=== PATIENT | male | born 2000 | race Caucasian/White ===

== ENCOUNTER 2020-12-22 16:17 | Inpatient (IN) ==
[2020-12-22] MEDS ORDERED: SODIUM CHLORIDE 0.9% 1000ML 1,000 ML IV SCH (17:30)
--- NOTE | 2020-12-22 17:35 | XRay Report ---
XR chest 1V portable CLINICAL HISTORY: weakness COMPARISON STUDY: No previous studies for comparison. FINDINGS: Lung volumes are normal. Lungs are clear. There is no pneumothorax or pleural effusion. Car diac size is normal. Mediastinal contours are normal. There is no evidence for pulmonary edema. IMPRESSION: No acute cardiopulmonary findings. ACT 112: Negative or not required by law. Electronically signed by: Rehan Bruce M.D. 12/22/2020 5:33 PM
[2020-12-22 17:37] LABS: Basophils # (auto) 0.01 K/uL (0-0.2); Basophils % (auto) 0.1 %; Eosinophils # (auto) 0.01 K/uL (0-0.5); Eosinophils % (auto) 0.1 %; Hematocrit (blood only) 42.8 % (42-52); Hemoglobin 15.3 g/dL (14.0-18.0); Immature Granulocytes # (auto) 0.04 K/uL (0.00-0.02); Immature Granulocytes % (auto) 0.3 %; Lymphocytes # (auto) 0.68 K/uL (1.2-3.4); Lymphocytes % (auto) 4.5 %; Mean Corpuscular Hemoglobin 30.1 pg (25-34); Mean Corpuscular Hgb Conc 35.7 g/dL (32-36); Mean Corpuscular Volume 84.1 fL (80-100); Mean Platelet Volume 9.6 fL (7.4-10.4); Monocytes # (auto) 0.47 K/uL (0.11-0.59); Monocytes % (auto) 3.1 %; Neutrophils # (auto) 13.75 K/uL (1.4-6.5); Neutrophils % (auto) 91.9 %; Platelet Count 213 K/uL (130-400); RDW Standard Deviation 36.9 fL (36.4-46.3); Red Blood Count 5.09 M/uL (4.7-6.1); White Blood Count 14.96 K/uL (4.8-10.8)
--- NOTE | 2020-12-22 17:41 | Emergency Department Note ---
Impression & Plan Rhabdomyolysis, Palpitations, Acute dehydration, Leukocytosis ED Provider Note NAME: ARTURO VELIZ AGE: 20 SEX: M : 2000 ARRIVES VIA: Walk-In INFORMANT: [Patient] ED PROVIDER(S): [Wally Carmona MD] CHIEF COMPLAINT: Palpitations HISTORY OF PRESENT ILLNESS: The patient is a 20-year-old male who states that this morning, he woke up and his heart was racing. He was flushed. He felt somewhat nauseated. His hands were tense and seemed stuck in 1 position. There was no shortness of breath, no chest pain. The patient eventually went to [facility] and was referred to the ED. The patient states that yesterday, he did a big leg workout and actually vomited mcc through. After lifting, he went out with friends and drank alcohol heavily. He did not go to sleep until 3 AM. He states he was drunk but did not feel that he was too overly intoxicated. Patient did force himself to throw up this morning after he woke up, this did not help his symptoms. [facility] was concerned about his EKG and his complaints, they sent him for evaluation. The patient is in baseline health, he has had no Covid exposures, he has had no cough or cold or congestion. He has never felt this way before. REVIEW OF SYSTEMS: See HPI for pertinent positives and negatives. A total of ten systems were reviewed and were otherwise negative. PMHx/PSHx: See Below SOCIAL HISTORY: See Below. PHYSICAL EXAM: GENERAL: Patient is in no acute distress. HEENT: No acute trauma, normocephalic atraumatic, mucous membranes moist, no nasal congestion, no scleral icterus. NECK: No stridor, no adenopathy, no meningismus, trachea is midline. LUNGS: Clear to auscultation bilaterally, no wheeze, no rhonchi, breath sounds equal. HEART: There is a 2/6 systolic murmur heard best at the right sternal border, regular rate and rhythm. ABDOMEN: Soft, nontender, bowel sounds positive, no hernias, no peritonitis. EXTREMITIES: No cyanosis or edema, full range of motion of all the joints without pain or difficulty, no signs for acute trauma. NEUROLOGIC: Oriented x 3, no acute motor or sensory deficits, no focal weakness. SKIN: No rash, no jaundice, no diaphoresis. DIFFERENTIAL DIAGNOSIS: Infection, dehydration, metabolic abnormality, alcohol abuse, thyroid disorder, rhabdomyolysis, SVT, A. fib or a flutter, holiday heart syndrome, hypo/hyperg lycemia, electrolyte disturbance, anemia, hypoxia, cardiac sources, intracerebral event, toxicologic issues, as well as other pathologies. EMERGENCY DEPARTMENT COURSE/PROCEDURES: ECG: Indication was palpitations. ECG shows a normal sinus rhythm with a rate of 91. The QTc is 462. There is a rightward axis. There is no ST elevation, no PVCs. Continuous Cardiac Monitoring: An order was placed for continuous cardiac monitoring. The monitor shows a rate of 78 with normal sinus rhythm. MEDICAL DECISION MAKING: There is a moderate leukocytosis, this certainly could be consistent with infection or just the stress of his situation. There is a normal hemoglobin and platelet count. D-dimer was undetectable. With a negative D-dimer and my low suspicion for PE, I will stop the work-up for this diagnosis. There is no significant electrolyte abnormality although, the glucose was slightly high at 217. AST mildly elevated 201, likely from his alcohol use last evening. No bilirubin elevation. Patient appeared to be in a euthyroid state. Total creatinine kinase was elevated at 6500, this is consistent with mild rhabdomyolysis. Urinalysis did not show infection, some ketones were seen. Urine tox was positive for marijuana. Covid testing was negative. Chest film did not show pneumonia or CHF. There was no cardiomegaly. ECG showed a sinus rhythm, no acute ischemia. Cardiac enzyme testing x1 is not consistent with acute cardiac injury. The patient was given 2 L of IV saline, this was given to help clear the creatinine kinase. The patient presents with palpitations. His presentation I suspect is multifactorial. He overdid it exercising yesterday and now has some rhabdomyolysis. He had a lot of alcohol to drink last night and as result is dehydrated. Given his findings, a hospital stay is warranted. I spoke to the patient and case management. The on-call hospitalist was consulted. Past Med/Surg History Medical History No significant past medical history Social History Smoking Status: Never smoker Hx Alcohol Use: Yes Alcohol type: beer Hx Substance Use: Yes Last Used Substance: Days (ago) Last Used Substance Other:: 12/19/20 Preferred Language: Upper Sorbian Beliefs That Will Affect Care: None Current Living Situation: Alone Current Living Situation Comment: [facility] Student Other Information That Helps Us Care for You: No Feels Safe at Home: Yes Assistive Devices: None Allergies Allergies Allergy/AdvReac Type Severity Reaction Status Date / Time No Known Allergies Allergy Verified 12/22/20 18:45 Home Meds Home Medications Medication Instructions Recorded Confirmed No Known Home Medications 12/22/20 12/22/20 Results & Data (ED) Vital Signs Vital Signs - 24 hr 12/22/20 16:42 12/22/20 16:55 12/22/20 17:00 Temperature 36.5 C Temperature Source Oral Pulse Rate 101 H 94 H Pulse Rate [Apical] 100 H Pulse Rate from SpO2 Sensor 115 H Pulse Rhythm [Apical] Regular Pulse Strength [Apical] Normal Respiratory Rate 18 18 24 Respiratory Effort / Characteristics Non-Labored Non-Labored Spontaneous Respiratory Depth Normal Normal Respiratory Pattern Regular Regular Blood Pressure 138/72 147/74 H Blood Pressure [Left Arm] 136/84 Blood Pressure Mean 94 98 Blood Pressure Mean [Left Arm] 101 Blood Pressure Position Sitting Blood Pressure Position [Left Arm] Sitting Pulse Oximetry 98 97 97 Oxygen Delivery Method Room Air Room Air Room Air Sepsis Recent Fever Within 48 Hours No Sepsis New/Unexplained Change in Mental Status No Sepsis Action Taken by Nursing No Action Required 12/22/20 17:06 12/22/20 17:26 12/22/20 17:30 Temperature Temperature Source Pulse Rate 94 H 101 H Pulse Rate [Apical] Pulse Rate from SpO2 Sensor 96 H 89 Pulse Rhythm [Apical] Pulse Strength [Apical] Respiratory Rate 24 17 Respiratory Effort / Characteristics Non-Labored Spontaneous Respiratory Depth Normal Respiratory Pattern Blood Pressure 157/77 H Blood Pressure [Left Arm] Blood Pressure Mean 103 Blood Pressure Mean [Left Arm] Blood Pressure Position Blood Pressure Position [Left Arm] Pulse Oximetry 97 97 Oxygen Delivery Method Room Air Room Air Sepsis Recent Fever Within 48 Hours Sepsis New/Unexplained Change in Mental Status Sepsis Action Taken by Nursing 12/22/20 18:00 12/22/20 18:03 12/22/20 18:30 Temperature Temperature Source Pulse Rate 82 86 94 H Pulse Rate [Apical] Pulse Rate from SpO2 Sensor 83 87 99 H Pulse Rhythm [Apical] Pulse Strength [Apical] Respiratory Rate 22 24 22 Respiratory Effort / Characteristics Respiratory Depth Respiratory Pattern Blood Pressure 150/57 H 143/76 H 152/84 H Blood Pressure [Left Arm] Blood Pressure Mean 88 98 106 Blood Pressure Mean [Left Arm] Blood Pressure Position Blood Pressure Position [Left Arm] Pulse Oximetry 99 97 99 Oxygen Delivery Method Sepsis Recent Fever Within 48 Hours Sepsis New/Unexplained Change in Mental Status Sepsis Action Taken by Nursing 12/22/20 18:31 Temperature Temperature Source Pulse Rate 97 H Pulse Rate [Apical] Pulse Rate from SpO2 Sensor 98 H Pulse Rhythm [Apical] Pulse Strength [Apical] Respiratory Rate 15 Respiratory Effort / Characteristics Respiratory Depth Respiratory Pattern Blood Pressure Blood Pressure [Left Arm] Blood Pressure Mean Blood Pressure Mean [Left Arm] Blood Pressure Position Blood Pressure Position [Left Arm] Pulse Oximetry 100 Oxygen Delivery Method Sepsis Recent Fever Within 48 Hours Sepsis New/Unexplained Change in Mental Status Sepsis Action Taken by [facility] Medications Current Medication List: was personally reviewed by me Laboratory Data Attestation: I reviewed the patient's lab results. Result diagrams: 12/22/20 17:01 12/22/20 17:01 Lab Results 12/22/20 12/22/20 12/22/20 Range/Units 17:01 17:01 17:01 WBC 14.96 H (4.8-10.8) K/uL RBC 5.09 (4.7-6.1) M/uL Hgb 15.3 (14.0-18.0) g/dL Hct 42.8 (42-52) % MCV 84.1 (80-100) fL MCH 30.1 (25-34) pg MCHC 35.7 (32-36) g/dL RDW Std Deviation 36.9 (36.4-46.3) fL RDW Coeff of More 12.0 (11.5-14.5) % Plt Count 213 (130-400) K/uL MPV 9.6 (7.4-10.4) fL Immature Gran % (Auto) 0.3 % Neut % (Auto) 91.9 % Lymph % (Auto) 4.5 % [place] % (Auto) 3.1 % Eos % (Auto) 0.1 % Baso % (Auto) 0.1 % Neut # (Auto) 13.75 H (1.4-6.5) K/uL Lymph # (Auto) 0.68 L (1.2-3.4) K/uL [place] # (Auto) 0.47 (0.11-0.59) K/uL Eos # (Auto) 0.01 (0-0.5) K/uL Baso # (Auto) 0.01 (0-0.2) K/uL Immature Gran # (Auto) 0.04 H (0.00-0.02) K/uL D-Dimer < 190 (0-500) ug/L FEU Sodium 136 (136-145) mmol/L Potassium 3.6 (3.5-5.1) mmol/L Chloride 101 (98-107) mmol/L Carbon Dioxide 25 (21-32) mmol/L Anion Gap 10.0 (3-11) BUN 16 (7-18) mg/dl Creatinine 1.15 (0.6-1.4) mg/dl Est Cr Clr Drug Dosing 100.0 ml/min Est GFR ( Amer) 105.6 Est GFR (Non-Af Amer) 91.1 BUN/Creatinine Ratio 14.1 (10-20) Glucose 217 H (70-99) mg/dl Calcium 8.7 (8.5-10.1) mg/dl Magnesium 2.2 (1.8-2.4) mg/dl Total Bilirubin 1.0 (0.2-1) mg/dl AST 201 H (15-37) U/L ALT 76 (12-78) U/L Alkaline Phosphatase 108 (45-117) U/L Total Creatine Kinase 6573 H (39-308) U/L Troponin I 0.026 (0-0.045) ng/ml Total Protein 7.4 (6.4-8.2) gm/dl Albumin 4.3 (3.4-5.0) gm/dl Globulin 3.1 (2.5-4.0) gm/dl Albumin/Globulin Ratio 1.4 (0.9-2) TSH 0.998 (0.300-4.500) uIu/ml Urine Color Urine Appearance (Clear) Urine pH (4.5-7.5) Ur Specific [place] (1.000-1.030) Urine Protein (Negative) Urine Glucose (UA) (Negative) Urine Ketones (Negative) Urine Blood (Negative) Urine Nitrite (Negative) Urine Bilirubin (Negative) Urine Urobilinogen (Negative) Ur Leukocyte Esterase (Negative) Urine Opiates Screen (Neg) Ur Methadone, Qual (Neg) Urine Barbiturates (Neg) Ur Phencyclidine (PCP) (Neg) U Amphetamin/Meth Scrn (Neg) MDMA (Ecstasy) Screen (Neg) U Benzodiazepines Scrn (Neg) Ur Cocaine Metabolite (Neg) U Marijuana (THC) Screen (Neg) COVID-19 Eval Order SARS-CoV-2, RNA, NAAT (NEGATIVE) 12/22/20 12/22/20 12/22/20 Range/Units 18:00 18:00 18:27 WBC (4.8-10.8) K/uL RBC (4.7-6.1) M/uL Hgb (14.0-18.0) g/dL Hct (42-52) % MCV (80-100) fL MCH (25-34) pg MCHC (32-36) g/dL RDW Std Deviation (36.4-46.3) fL RDW Coeff of More (11.5-14.5) % Plt Count (130-400) K/uL MPV (7.4-10.4) fL Immature Gran % (Auto) % Neut % (Auto) % Lymph % (Auto) % [place] % (Auto) % Eos % (Auto) % Baso % (Auto) % Neut # (Auto) (1.4-6.5) K/uL Lymph # (Auto) (1.2-3.4) K/uL [place] # (Auto) (0.11-0.59) K/uL Eos # (Auto) (0-0.5) K/uL Baso # (Auto) (0-0.2) K/uL Immature Gran # (Auto) (0.00-0.02) K/uL D-Dimer (0-500) ug/L FEU Sodium (136-145) mmol/L Potassium (3.5-5.1) mmol/L Chloride (98-107) mmol/L Carbon Dioxide (21-32) mmol/L Anion Gap (3-11) BUN (7-18) mg/dl Creatinine (0.6-1.4) mg/dl Est Cr Clr Drug Dosing ml/min Est GFR ( Amer) Est GFR (Non-Af Amer) BUN/Creatinine Ratio (10-20) Glucose (70-99) mg/dl Calcium (8.5-10.1) mg/dl Magnesium (1.8-2.4) mg/dl Total Bilirubin (0.2-1) mg/dl AST (15-37) U/L ALT (12-78) U/L Alkaline Phosphatase (45-117) U/L Total Creatine Kinase (39-308) U/L Troponin I (0-0.045) ng/ml Total Protein (6.4-8.2) gm/dl Albumin (3.4-5.0) gm/dl Globulin (2.5-4.0) gm/dl Albumin/Globulin Ratio (0.9-2) TSH (0.300-4.500) uIu/ml Urine Color Yellow Urine Appearance Clear (Clear) Urine pH 5.5 (4.5-7.5) Ur Specific [place] 1.022 (1.000-1.030) Urine Protein Negative (Negative) Urine Glucose (UA) 1+ H (Negative) Urine Ketones 1+ H (Negative) Urine Blood Negative (Negative) Urine Nitrite Negative (Negative) Urine Bilirubin Negative (Negative) Urine Urobilinogen Negative (Negative) Ur Leukocyte Esterase Negative (Negative) Urine Opiates Screen Neg (Neg) Ur Methadone, Qual Neg (Neg) Urine Barbiturates Neg (Neg) Ur Phencyclidine (PCP) Neg (Neg) U Amphetamin/Meth Scrn Neg (Neg) MDMA (Ecstasy) Screen Neg (Neg) U Benzodiazepines Scrn Neg (Neg) Ur Cocaine Metabolite Neg (Neg) U Marijuana (THC) Screen Pos H (Neg) COVID-19 [facility] SARS-CoV-2, RNA, NAAT (NEGATIVE) 12/22/20 Range/Units 18:27 WBC (4.8-10.8) K/uL RBC (4.7-6.1) M/uL Hgb (14.0-18.0) g/dL Hct (42-52) % MCV (80-100) fL MCH (25-34) pg MCHC (32-36) g/dL RDW Std Deviation (36.4-46.3) fL RDW Coeff of More (11.5-14.5) % Plt Count (130-400) K/uL MPV (7.4-10.4) fL Immature Gran % (Auto) % Neut % (Auto) % Lymph % (Auto) % [place] % (Auto) % Eos % (Auto) % Baso % (Auto) % Neut # (Auto) (1.4-6.5) K/uL Lymph # (Auto) (1.2-3.4) K/uL [place] # (Auto) (0.11-0.59) K/uL Eos # (Auto) (0-0.5) K/uL Baso # (Auto) (0-0.2) K/uL Immature Gran # (Auto) (0.00-0.02) K/uL D-Dimer (0-500) ug/L FEU Sodium (136-145) mmol/L Potassium (3.5-5.1) mmol/L Chloride (98-107) mmol/L Carbon Dioxide (21-32) mmol/L Anion Gap (3-11) BUN (7-18) mg/dl Creatinine (0.6-1.4) mg/dl Est Cr Clr Drug Dosing ml/min Est GFR ( Amer) Est GFR (Non-Af Amer) BUN/Creatinine Ratio (10-20) Glucose (70-99) mg/dl Calcium (8.5-10.1) mg/dl Magnesium (1.8-2.4) mg/dl Total Bilirubin (0.2-1) mg/dl AST (15-37) U/L ALT (12-78) U/L Alkaline Phosphatase (45-117) U/L Total Creatine Kinase (39-308) U/L Troponin I (0-0.045) ng/ml Total Protein (6.4-8.2) gm/dl Albumin (3.4-5.0) gm/dl Globulin (2.5-4.0) gm/dl Albumin/Globulin Ratio (0.9-2) TSH (0.300-4.500) uIu/ml Urine Color Urine Appearance (Clear) Urine pH (4.5-7.5) Ur Specific [place] (1.000-1.030) Urine Protein (Negative) Urine Glucose (UA) (Negative) Urine Ketones (Negative) Urine Blood (Negative) Urine Nitrite (Negative) Urine Bilirubin (Negative) Urine Urobilinogen (Negative) Ur Leukocyte Esterase (Negative) Urine Opiates Screen (Neg) Ur Methadone, Qual (Neg) Urine Barbiturates (Neg) Ur Phencyclidine (PCP) (Neg) U Amphetamin/Meth Scrn (Neg) MDMA (Ecstasy) Screen (Neg) U Benzodiazepines Scrn (Neg) Ur Cocaine Metabolite (Neg) U Marijuana (THC) Screen (Neg) COVID-19 Eval Order SARS-CoV-2, RNA, NAAT NEGATIVE (NEGATIVE) Administered Medications Sodium Chloride (Nss 1000ml) 1,000 mls @ 200 mls/hr IV .Q5H ADELA Stop: 01/21/21 19:59 Last Admin: 12/22/20 21:51 Dose: 200 mls/hr Documented by: [id number] Discontinued Medications Sodium Chloride (Nss 1000ml) 1,000 mls @ 999 mls/hr IV .Q1H1M ADELA Stop: 12/22/20 18:30 Last Infusion: 12/22/20 18:22 Dose: 0 mls/hr Documented by: [id number] Admin: 12/22/20 17:49 Dose: 999 mls/hr Documented by: [id number] Sodium Chloride (Nss 1000ml) 1,000 mls @ 999 mls/hr IV .Q1H1M ONE Stop: 12/22/20 19:04 Last Infusion: 12/23/20 00:33 Dose: 0 mls/hr Documented by: [id number] Admin: 12/22/20 18:22 Dose: 999 mls/hr Documented by: [id number] Imaging Data Radiologist's Impression: XR chest 1V portable CLINICAL HISTORY: weakness COMPARISON STUDY: No previous studies for comparison. FINDINGS: Lung volumes are normal. Lungs are clear. There is no pneumothorax or pleural effusion. Cardiac size is normal. Mediastinal contours are normal. There is no evidence for pulmonary edema. IMPRESSION: No acute cardiopulmonary findings. Discharge Plan Visit Data Chief Complaint: Cardiac Assessment Stated Complaint: HIGH HEART RATE, REF OVER BY [email or web address] ED Provider: Wally Carmona Discharge Problem: Rhabdomyolysis, Palpitations, Acute dehydration, Leukocytosis Patient Disposition: Admitted As Inpatient Condition: Good Discharge Instructions Interventions: ED Discharge Assessment Last Done: 12/22/20 20:21 Discharge Problem: Rhabdomyolysis Qualifiers: Rhabdomyolysis type: non-traumatic Qualified Code(s): M62.82 - Rhabdomyolysis Leukocytosis Qualifiers: Leukocytosis type: unspecified Qualified Code(s): D72.829 - Elevated white blood cell count, unspecified
[2020-12-22 17:45] LABS: Albumin Level 4.3 gm/dl (3.4-5.0); BUN Creatinine Ratio 14.1 (10-20); Calcium 8.7 mg/dl (8.5-10.1); Est GFR (African American) 105.6; Est GFR (Non-African American) 91.1; Magnesium 2.2 mg/dl (1.8-2.4); Potassium 3.6 mmol/L (3.5-5.1)
[2020-12-22 17:46] LABS: D Dimer < 190 ug/L FEU (0-500)
[2020-12-22 17:59] LABS: Albumin Globulin Ratio 1.4 (0.9-2); Globulin 3.1 gm/dl (2.5-4.0); Thyroid Stimulating Hormone 0.998 uIu/ml (0.300-4.500); Total Protein 7.4 gm/dl (6.4-8.2); Troponin I 0.026 ng/ml (0-0.045)
[2020-12-22] MEDS ORDERED: SODIUM CHLORIDE 0.9% 1000ML 1,000 ML IV ONE (18:04)
[2020-12-22 18:12] LABS: Appearance Urine Clear (Clear); Bilirubin Urine Negative (Negative); Blood Urine Negative (Negative); Color Urine Yellow; Glucose Urine UA 1+ (Negative); Ketones Urine 1+ (Negative); Leukocyte Esterase Urine Negative (Negative); Nitrite Urine Negative (Negative); Protein Urine Negative (Negative); Specific Gravity Urine 1.022 (1.000-1.030); Urobilinogen Urine Negative (Negative); pH Urine 5.5 (4.5-7.5)
[2020-12-22 18:26] LABS: Amphetamines+Metham, Urine Neg (Neg); Barbiturates, Urine Neg (Neg); Benzodiazepine, Urine Neg (Neg); Cocaine, Urine Neg (Neg); MDMA (Ecstacy), Urine Neg (Neg); Methadone, Urine Neg (Neg); Opiate, Urine Neg (Neg); Phencyclidine, Urine Neg (Neg)
--- NOTE | 2020-12-22 18:44 | History & Physical Report ---
Date of Service December 22, 2020 Assessment & Plan (1) Rhabdomyolysis: Continue IV fluids with NSS @ 200ml/hr Repeat CPK in AM Advised gradual return to exercise rather than intense regimens and staying well hydrated in future. (2) Hyperglycemia: Suspect secondary to Big Mac prior to arrival in ER. BSG ACHS to make sure no concern for diabetes. Admission and Anticipated Discharge Date Admission Date: Dec 22, 2020 History of Present Illness Chief Complaint: Hand cramps, palpitations Primary Care Provider: NO PCP Jose Jacobs is a 20-year-old male who presents to the ER with hand cramps and palpitations on the advice of [facility]. Around 8pm yesterday he reports performing an intense leg workout after months without exercise. During the workup he vomited but continued to workout. He denies taking any workout supplements. After this he went out drinking alcohol finally going to bed around 2:30am. When he woke up this morning his hands were intensely cramping and having palpitations. He tried to sleep it off and drink water but his symptoms persisted therefore went to [facility]. He denies any current cramps after IV fluids resuscitation int the ER. No leg pain. No change in urine. CPK [id number]. He was referred to medicine for admission and ongoing management of rhabdomyolysis. Allergies Allergy/AdvReac Type Severity Reaction Status Date / Time No Known Allergies Allergy Verified 12/22/20 18:45 Home Medications Medication Instructions Recorded Confirmed Type No Known Home Medications 12/22/20 12/22/20 History Past Med/Surg History Medical History No significant past medical history Social History Smoking Status: Never smoker Hx Alcohol Use: Yes Alcohol type: beer Hx Substance Use: Yes Last Used Substance: Days (ago) Last Used Substance Other:: 12/19/20 Preferred Language: Czech Beliefs That Will Affect Care: None Current Living Situation: Alone Current Living Situation Comment: [facility] Student Other Information That Helps Us Care for You: No Feels Safe at Home: Yes Assistive Devices: None Review of Systems Review of Systems: All systems reviewed & are unremarkable except as noted in HPI & below Physical Exam Constitutional: well developed and well nourished; no acute distress Eyes: + anicteric sclerae; normal pupil size ENMT: external ear and nose normal, oropharynx normal Neck: trachea midline Respiratory: normal respiratory effort, lungs clear to auscultation Cardiovascular: Rate/Rhythm: regular rhythm and + tachycardic Heart Sounds: no murmur Extremities: no calf tenderness Gastrointestinal (Abdomen): normal bowel sounds, soft, nontender, no hepatosplenomegaly Musculoskeletal: no cyanosis or clubbing, extremities motor strength 5/5 Skin: no rashes, warm and dry Neurologic: moves all extremities and awake; not confused Psychiatric: A+Ox3, euthymic affect Results & Data Results & Data ([facility]) Vital Signs (Past 12 Hours) Vital Signs Temp Pulse Pulse Resp BP BP Pulse Ox 12/22/20 18:31 97 H 15 100 12/22/20 18:30 94 H 22 152/84 H 99 12/22/20 18:03 86 24 143/76 H 97 12/22/20 18:00 82 22 150/57 H 99 12/22/20 17:30 101 H 17 157/77 H 97 12/22/20 17:06 94 H 24 97 12/22/20 17:00 94 H 24 147/74 H 97 12/22/20 16:55 100 H 18 136/84 97 12/22/20 16:42 36.5 C 101 H 18 138/72 98 Medications Administered ER Medications given: NSS 2L bolus ECG Indication: other Rate (beats per minute): 91 Rhythm: sinus tachycardia Findings: + other (Right axis deviation); no acute ischemic change Comparison ECG Date: no prior available Code Status & VTE Plan Code Status Full VTE Prophylaxis Plan VTE Prophylaxis will be ordered: No PG Care Time/CCT Total # of Minutes Spent Total Time Spent with Patient: Total time spent is greater than 50% in coordination of care (as documented) at patient's floor/unit and/or counseling patient: Coding Level of Care Code 96628 Initial Inpt Care Lvl 2 Diagnoses Rhabdomyolysis M62.82 Hyperglycemia R73.9
[2020-12-22] MEDS: SODIUM CHLORIDE 0.9% 1000ML 1,000 ML IV SCH (21:51)
[2020-12-23] MEDS: SODIUM CHLORIDE 0.9% 1000ML 1,000 ML IV SCH ×3 (02:50→12:27)
[2020-12-23 07:35] LABS: BUN Creatinine Ratio 13.3 (10-20); Blood Urea Nitrogen 10 mg/dl (7-18); Calcium 8.2 mg/dl (8.5-10.1); Carbon Dioxide 27 mmol/L (21-32); Chloride 109 mmol/L (98-107); Creatinine Clr Calc Pharmacy 139.3 ml/min; Est GFR (African American) > 150.0; Est GFR (Non-African American) 129.9; Glucose 84 mg/dl (70-99); Potassium 3.8 mmol/L (3.5-5.1); Sodium 143 mmol/L (136-145)
[2020-12-23 07:50] LABS: Creatine Kinase 4830 U/L (39-308)
--- NOTE | 2020-12-23 10:35 | Discharge Summary ---
Date of Service December 23, 2020 Admission HPI Per Admitting Provider Jose Jacobs is a 20-year-old male who presents to the ER with hand cramps and palpitations on the advice of [facility]. Around 8pm yesterday he reports performing an intense leg workout after months without exercise. During the workup he vomited but continued to workout. He denies taking any workout supplements. After this he went out drinking alcohol finally going to bed around 2:30am. When he woke up this morning his hands were intensely cramping and having palpitations. He tried to sleep it off and drink water but his symptoms persisted therefore went to [facility]. He denies any current cramps after IV fluids resuscitation int the ER. No leg pain. No change in urine. CPK [id number]. He was referred to medicine for admission and ongoing management of rhabdomyolysis. Admission Exam Per Admitting Provider Constitutional: well developed and well nourished; no acute distress Eyes: + anicteric sclerae; normal pupil size ENMT: external ear and nose normal, oropharynx normal Neck: trachea midline Respiratory: normal respiratory effort, lungs clear to auscultation Cardiovascular: Rate/Rhythm: regular rhythm and + tachycardic Heart Sounds: no murmur Extremities: no calf tenderness Gastrointestinal (Abdomen): normal bowel sounds, soft, nontender, no hepatosplenomegaly Musculoskeletal: no cyanosis or clubbing, extremities motor strength 5/5 Skin: no rashes, warm and dry Neurologic: moves all extremities and awake; not confused Psychiatric: A+Ox3, euthymic affect Principal Diagnosis Rhabdomyolysis Discharge Exam GENERAL: A&Ox3. NAD. HEENT: EOMI. Moist mucous membranes. CHEST/LUNGS: CTAB A/P. No crackles, wheezes, rales, ronchi. HEART: RRR. No m/g/r. No carotid bruits. SKIN: Warm and dry. No rashes or lesions. PSYCHIATRIC: Euthymic affect, no SI, no pressured speech, no hallucinations NEUROLOGIC: 5/5 strength x4 extremities. Sensation intact. DTR 2+ in all four extremities. CN II-XII grossly intact. Discharge Data Allergies Allergy/AdvReac Type Severity Reaction Status Date / Time No Known Allergies Allergy Verified 12/22/20 18:45 Consultations 12/22/20 18:24 ED Decision to Admit Stat Hospital Course (1) Rhabdomyolysis: Jose Jacobs is a 20-year-old male who was sent to [facility] from an urgent care due to concerns of rapid heart beat, hand cramps, and concerning EKG. He was found to have a CK of over 6000 in the ED and as such was thought to have rhabdomyolysis after a particularly strenuous workout the day before. The patient had also been vomiting after a night out drinking and as such was thought to be dehydrated. He was given IV fluids overnight. In the morning his symptoms had resolved and his CK was trending down. His EKG on admission did have increased voltage and was concerning for hypertrophy. Due to the concern for hypertrophic cardiomyopathy in a physically active young gentleman, an echocardiogram was performed to rule this out. At time of discharge the results of the echo are pending but the patient was informed of this pending result and advised to follow-up with [facility] to discuss the results. (2) Acute dehydration: Total Time Total Time Spent Total Time Spent (In Minutes): <30 Discharge Plan Discharge Items Patient Disposition: Home - Self-Care Reason For Visit: RHABDOMYOLYSIS Discharge Diagnosis: Rhabdomyolysis Condition on Discharge: Good Activity: Per Instructions section Non-emergency contact: Primary Care Provider Call non-emergency contact if: you have any medication questions and your symptoms worsen Follow-up/Referrals: PCP,NO [Primary Care Provider] - Diet: Regular Addtl Attending Provider Instructions: You were admitted to [facility] due to findings consistent with rhabdomyolysis on your lab work. While admitted you were given intravenous fluids for hydration and on recheck, your lab work showed a downtrend in your CK, which is the marker for muscle breakdown in rhabdomyolysis. You EKG on admission did show high voltage, which can sometimes point to enlargement of your heart. In light of the fact that you exercise regularly, we ordered an echocardiogram to rule out hypertrophic cardiomyopathy. We recommend that you sign up for our portal and you can receive the results of your echocardiogram through there. Follow up with your PCP to discuss the results of this study, as well as your hospitalization. Pending Studies at Discharge: Yes Stand-Alone Forms: [employer], Smoking Cessation Medications and DC Order Prescriptions: No Action No Known Home Medications RF: 0 Discharge Orders: Discharge Order (Routine); Ordered 12/23/20 Ordered By: Gee Lawson Admission Data Admit Date/Time: 12/22/20 18:41 Attending Provider: Slava Josue Admit Provider: Alfonzo Frazier Primary Care Provider: PCP,NO Other Providers: Alfonzo Frazier Other Interventions: Discharge Summary Assessment (RN) Last Done: 12/23/20 12:09 Supervising Physician Co-Signing Physician Notes I personally examined the patient and verified all alexander points of history and exam, discussed case, and agree with decision making with Dr Dempsey. Feeling better. Feeling up to going home. Answered all questions to the best my ability. Vitals noted, in general he is awake and alert pleasant no distress. HEENT normocephalic atraumatic mucous membranes moist. Breathing unlabored no accessory muscle use good effort. Skin shows no rashes no pallor or icterus. Neuro shows no focal deficits. Acute dehydration with hand cramps and palpitationswhile technically he does not meet criteria for rhabdomyolysis, the fact that he did a leg workout and woke up with hand cramps, as well as the fact that his CKs were not extremely elevated, as well as the rest of his clinical picture really suggest that he was quite dehydrated far more than suffering from a clinically significant rhabdomyolysis. The mild rhabdo itself may have actually just been subsequent to the CK elevation from his leg workout. At any rate with hydration he is now improved and stable for home. We discussed getting in adequate p.o. fluid intake. Abnormal EKGappeared consistent with LVH electricallybut fortunately echocardiogram appeared completely normal. Stable for home. Otherwise as above. Resident Activity Tracking Resident Involvement: Resident Care Provided Care Provided: Adult Hospital Medicine
--- NOTE | 2020-12-23 13:25 | XCELERA ---
[id number]
--- NOTE | 2020-12-23 16:59 | Billing Data ---
Date of Service December 23, 2020 Coding Level of Care Code D/C Day Management <30 mins
--- NOTE | 2020-12-23 22:17 | Electrocardiogram Report ---
Test Reason : Blood Pressure : / mmHG Vent. Rate : 091 BPM Atrial Rate : 091 BPM P-R Int : 148 ms QRS Dur : 100 ms QT Int : 376 ms P-R-T Axes : 080 103 048 degrees QTc Int : 462 ms Normal sinus rhythm Rightward axis Borderline ECG No previous ECGs available Confirmed by eTo Marrero ([id number]) on 12/23/2020 10:16:29 PM Referred By: REFERRED SELF Confirmed By:Teo Marrero
[2020-12-25 00:58] LABS: Marijuana Quant, GCMS Urine 88 ng/mL (<5)
== END 2020-12-23 12:40 | disposition home or self-care (01) | DRG 558 ==
LOC: ED 16:17 → 3N 18:41 → SUATTDRO 18:41 → 3N 20:21